=== PATIENT | male | born 2000 | race Two or more races ===

== ENCOUNTER 2021-04-21 23:00 | Inpatient (IN) | payer MEDICAID, OTHER ==
[~2021-04-21] VITALS: Ht 182.9 cm; Wt 132.0 kg
[2021-04-21 23:35] LABS: BASOPHILS # (AUTO) 0.3 K/uL (0.0-0.2); BASOPHILS % (AUTO) 2.2 % (0.0-2.0); EOSINOPHILS % (AUTO) 0.8 % (0.0-6.0); HEMATOCRIT 41 % (39-51); HEMOGLOBIN 13.3 g/dL (13.5-17.5); LYMPHOCYTES # (AUTO) 2.1 K/uL (0.8-4.8); LYMPHOCYTES % (AUTO) 14.7 % (20.0-44.0); MEAN CORPUSCULAR HGB CONC 32 g/dl (31.0-36.0); MEAN CORPUSCULAR VOLUME 80 fL (80-96); MONOCYTES # (AUTO) 1.6 K/uL (0.1-1.30); MONOCYTES % (AUTO) 10.9 % (2.0-12.0); NEUTROPHILS # (AUTO) 10.4 K/uL (1.8-8.9); NEUTROPHILS % (AUTO) 71.4 % (43.0-81.0); PLATELET COUNT (AUTO) 259 K/uL (150-450); RED BLOOD CELL COUNT(AUTO) 5.16 MIL/uL (4.5-6.0); WHITE BLOOD COUNT (AUTO) 14.5 K/uL (4.3-11.0)
[2021-04-21] MEDS ORDERED: diphenhydrAMINE HCL 50 MG/ML VIAL ONE (23:40)
[2021-04-21] MEDS ORDERED: HALOPERIDOL LACTATE INJ 5 MG/ML VIAL ONE (23:40)
[2021-04-21] MEDS ORDERED: LORAZEPAM INJ 2 MG/ML VIAL ONE (23:41)
[2021-04-21 23:43] LABS: CALCIUM, SERUM 8.1 mg/dL (8.5-10.1); CARBON DIOXIDE 26 mmol/L (21-32); CHLORIDE 102 mmol/L (98-107); CREATININE 1.3 mg/dL (0.6-1.3); GLUCOSE 82 mg/dL (74-106); SODIUM SERUM 142 mmol/L (136-145); UREA NITROGEN, BLOOD 14 mg/dL (7-18)
--- NOTE | 2021-04-21 23:46 | NUR ---
PT [facility] 86 AND [employer] FOR [employer] AT [employer], COMBATIVE ON SCENE. PLACED IN BED 15 ON FIELD AIDE AND PULSE OX. ER MD AT BEDSIDE FOR EVAL. PER RA, GIVEN 5MG VERSED MARINE ENGINEERING CONSULTANT.
[2021-04-21 23:57] LABS: ALANINE AMINOTRANSFERASE 164 U/L (12-78); ALBUMIN 3.9 g/dL (3.4-5.0); ALKALINE PHOSPHATASE 60 U/L (46-116); ASPARTATE AMINOTRANSFERASE 258 U/L (15-37); BILIRUBIN,DIRECT 0.4 mg/dL (0.0-0.2); BILIRUBIN,TOTAL 2.8 mg/dL (0.2-1.0); TOTAL PROTEIN, SERUM 7.9 g/dL (6.4-8.2)
[2021-04-22] LABS: ACETAMINOPHEN < 2 ug/ml (10-30); ALCOHOL, BLOOD < 3 mg/dL (0-0)
[2021-04-22] MEDS ORDERED: HALOPERIDOL LACTATE INJ 5 MG/ML VIAL IM ONE
--- NOTE | 2021-04-22 01:25 | NUR ---
PT ASLEEP, ON MONITOR, AND PULSE OX.
[2021-04-22 03:07] LABS: CREATINE KINASE, TOTAL 15930 U/L (39-308); LIPASE 60 U/L (73-393)
[2021-04-22] MEDS ORDERED: LORAZEPAM INJ 2 MG/ML VIAL ONE (03:14)
[2021-04-22] MEDS ORDERED: diphenhydrAMINE HCL 50 MG/ML VIAL ONE (03:14)
[2021-04-22] MEDS ORDERED: diphenhydrAMINE HCL 50 MG/ML VIAL IM ONE ×2 (03:30)
[2021-04-22] MEDS ORDERED: LORAZEPAM INJ 2 MG/ML VIAL IM ONE ×2 (03:30)
[2021-04-22] MEDS ORDERED: IV NS 0.9% 3,000 ML IV ONE (04:00)
[2021-04-22 04:06] LABS: BILIRUBIN,URINE MODERATE (NEGATIVE); COLOR,URINE AMBER (YELLOW); LEUKOCYTE ESTERASE ,URINE Negative (NEGATIVE); NITRITE, URINE Negative (NEGATIVE); PROTEIN,URINE 30 mg/dl (NEGATIVE); UGLUCOSE Negative (NEGATIVE)
--- NOTE | 2021-04-22 04:19 | NUR ---
PT REMAINS ASLEEP, VSS.
[2021-04-22] MEDS ORDERED: ONDANSETRON HCL/PF 4 MG/2 ML VIAL IVP PRN (06:00)
[2021-04-22] MEDS ORDERED: IV NS 0.9% 1,000 ML IV PRN (06:00)
--- NOTE | 2021-04-22 06:49 | NUR ---
GLOBAL CHIEF CREATIVE OFFICER AT BEDSIDE FOR BLOOD DRAW.
[2021-04-22 06:52] LABS: BASOPHILS % (AUTO) 0.3 % (0.0-2.0); EOSINOPHILS % (AUTO) 0.7 % (0.0-6.0); HEMATOCRIT 40 % (39-51); HEMOGLOBIN 13.1 g/dL (13.5-17.5); LYMPHOCYTES # (AUTO) 3.4 K/uL (0.8-4.8); LYMPHOCYTES % (AUTO) 24.2 % (20.0-44.0); MEAN CORPUSCULAR HGB CONC 33 g/dl (31.0-36.0); MEAN CORPUSCULAR VOLUME 80 fL (80-96); MONOCYTES # (AUTO) 1.5 K/uL (0.1-1.30); MONOCYTES % (AUTO) 10.9 % (2.0-12.0); NEUTROPHILS # (AUTO) 8.9 K/uL (1.8-8.9); NEUTROPHILS % (AUTO) 63.9 % (43.0-81.0); PLATELET COUNT (AUTO) 223 K/uL (150-450); RED BLOOD CELL COUNT(AUTO) 4.98 MIL/uL (4.5-6.0); WHITE BLOOD COUNT (AUTO) 13.9 K/uL (4.3-11.0)
--- NOTE | 2021-04-22 07:36 | NUR ---
GOT BED 315-2
[2021-04-22 07:44] LABS: CALCIUM, SERUM 8.1 mg/dL (8.5-10.1); CREATININE 0.8 mg/dL (0.6-1.3); POTASSIUM 3.4 mmol/L (3.5-5.1)
--- NOTE | 2021-04-22 08:00 | NUR ---
THE PATIENT IS RECEIVED IN [facility] BED #15. THE PATIENT IS SLEEPING. IN ROOM AIR. RESPIRATION REGULAR AND UNLABORED. PATIENT IS IN NO APPARENT DISTRESS. ATTACHED TO THE MONITOR. WILL CONTINUE TO MONITOR THE PATIENT.
--- NOTE | 2021-04-22 08:40 | NUR ---
MS FURNACE TENDER NOTES RECEIVED PATIENT FROM ER ENDORSED BY NURSE SUSI, ASLEEP. ON ROOM AIR TOLERATING WELL, NO SOB NOTED. NOT IN DISTRESS. WITH NO COMPLAINTS OF PAIN AT THIS TIME. VITAL SIGNS TAKEN. SKIN ASSESSMENT DONE. MADE COMFORTABLE ON BED. WITH IV ACCESS AT RIGHT AC G18, SALINE LOCKED, PATENT AND INTACT. SAFETY MEASURES IN PLACE. BED ON LOWEST AND LOCKED POSITION WITH SIDE RAILS UP X2. CALL LIGHT WITHIN REACH. WILL CONTINUE TO MONITOR.
[2021-04-22 09:00] VITALS: BP 147/100
[2021-04-22] MEDS ORDERED: POTASSIUM CHLORIDE 20 MEQ TAB.PRT.SR PO SCH (10:00)
--- NOTE | 2021-04-22 10:22 | NUR ---
MS RN NOTES STARTED IVF NS AT 150ML/HR ORDERED.
--- NOTE | 2021-04-22 14:10 | NUR ---
MS RN NOTES PATIENT WOKE UP AND TRIED TO PULL OUT KUO CATHETER. INSISTED TO HAVE HIS KUO CATHETER REMOVED.
--- NOTE | 2021-04-22 15:00 | NUR ---
MS RN NOTES PATIENT LEFT AMA. IV LINE REMOVED. INCIDENT REPORT DONE. INCIDENT REPORT Unique Id: [id number]
--- NOTE | 2021-04-22 15:20 | NUR ---
MS RN NOTES REMOVED KUO CATHETER.
== END 2021-04-22 15:00 | disposition left against medical advice (07) | DRG 812 ==
LOC: ER 23:03 → TRANSITION 04-22 06:08 → TELE 04-22 07:45 → MED 04-22 11:17
PROVIDERS: ADMIT Student in an Organized Health Care Education/Training Program; ATTEND Student in an Organized Health Care Education/Training Program
DX: T43.621A Poisoning by amphetamines, accidental (unintentional), initial encounter (principal); G92.9 Unspecified toxic encephalopathy; M62.82 Rhabdomyolysis; K76.0 Fatty (change of) liver, not elsewhere classified; D64.9 Anemia, unspecified; F15.10 Other stimulant abuse, uncomplicated; R74.01 Elevation of levels of liver transaminase levels; D72.829 Elevated white blood cell count, unspecified; E87.6 Hypokalemia; S00.81XA Abrasion of other part of head, initial encounter; X58.XXXA Exposure to other specified factors, initial encounter; Y93.89 Activity, other specified; Y92.512 Supermarket, store or market as the place of occurrence of the external cause; K80.20 Calculus of gallbladder without cholecystitis without obstruction; Z20.822 Contact with and (suspected) exposure to COVID-19; Y92.9 Unspecified place or not applicable; G92.8 Other toxic encephalopathy
CPT/HCPCS: 36415; 76705-TC; 80048-TC; 80076-TC; 82550-TC; 82553; 83690-TC; 85025-TC; 87081-TC; C9803; G0378; G0480; J1200; J1630; J2060; J7030